=== PATIENT | female | born 2000 | race Caucasian/White ===

== ENCOUNTER 2019-02-15 07:16 | Emergency (ER) | payer BC ==
[~2019-02-15] VITALS: Ht 157.5 cm; Wt 37.0 kg
[2019-02-15 07:21] VITALS: BP 121/90
[2019-02-15 08:56] LABS: BASOPHILS % (AUTO) 0.4 % (0-1); EOSINOPHILS # (AUTO) 0.1 X10'3 (0-0.9); HEMATOCRIT 38.8 % (35.0-45.0); HEMOGLOBIN 13.5 g/dl (12.0-16.0); LYMPHOCYTES # (AUTO) 2.1 X10'3 (1.1-4.8); LYMPHOCYTES % (AUTO) 28.6 % (21-51); MEAN CORPUSCULAR HEMOGLOBIN 32.3 PG (27.0-31.0); MEAN CORPUSCULAR HGB CONC 34.7 g/dL (33.0-36.5); MEAN CORPUSCULAR VOLUME 92.9 FL (78-98); MEAN PLATELET VOLUME 7.9 FL (7.4-10.4); MONOCYTES # (AUTO) 0.8 X10'3 (0-0.9); MONOCYTES % (AUTO) 10.7 % (2-12); NEUTROPHILS # (AUTO) 4.4 X10'3 (1.8-7.7); NEUTROPHILS % (AUTO) 59.3 % (42-75); PLATELET COUNT 261 X10'3 (140-440); RED BLOOD COUNT 4.18 X10'6 (4.20-5.60); RED CELL DISTRIBUTION WIDTH 12.2 % (11.5-14.5); WHITE BLOOD COUNT 7.4 X10'3 (4.5-11.0)
[2019-02-15 09:18] LABS: ALANINE AMINOTRANSFERASE 26 U/L (12-78); ALBUMIN 3.8 G/DL (3.4-5.0); ALKALINE PHOSPHATASE 33 IU/L (20-180); ANION GAP 5 (8-16); ASPARTATE AMINO TRANSFERASE 31 U/L (10-37); BILIRUBIN,TOTAL 1.2 MG/DL (0.1-1.0); BLOOD UREA NITROGEN 11 MG/DL (7-18); BUN/CREATININE RATIO 15.1 (6.6-38.0); CALCIUM 9.3 MG/DL (8.5-10.1); CHLORIDE 100 MMOL/L (99-107); CREATININE 0.73 MG/DL (0.40-0.90); GLUCOSE 75 MG/DL (70-104); POTASSIUM 3.5 MMOL/L (3.5-5.1); SODIUM 136 MMOL/L (135-145); TOTAL CARBON DIOXIDE 30.8 MMOL/L (24-32); TOTAL PROTEIN 7.7 G/DL (6.4-8.2); eGFR > 90 ML/MIN
== END 2019-02-15 09:59 | disposition home or self-care (01) ==
LOC: ER 07:17
DX: E87.6 Hypokalemia (principal); B34.9 Viral infection, unspecified
CPT/HCPCS: 36415; 80053; 85025; 99283

== ENCOUNTER 2021-05-24 20:47 | Emergency (ER) | payer BC ==
[~2021-05-24] VITALS: Ht 157.5 cm; Wt 41.8 kg
[2021-05-24] MEDS ORDERED: normal saline 1000ML IV soln IVB ONE (21:00)
[2021-05-24] MEDS ORDERED: ARIP5TAB60 PO (21:04)
[2021-05-24] MEDS ORDERED: BUSP15TA3 PO (21:04)
[2021-05-24] MEDS ORDERED: GABA-530 PO (21:04)
[2021-05-24] MEDS ORDERED: haloperidol lactate 5mg/ml inj IM ONE (21:40)
[2021-05-24] MEDS ORDERED: diphenhydrAMINE 50 mg/ml inj IM ONE (21:40)
[2021-05-24 22:09] LABS: BASOPHILS % (AUTO) 0.6 % (0-1); EOSINOPHILS % (AUTO) 0.7 % (0-6); HEMATOCRIT 41.9 % (35.0-45.0); HEMOGLOBIN 14.2 g/dl (12.0-16.0); LYMPHOCYTES # (AUTO) 1.3 X10'3 (1.1-4.8); LYMPHOCYTES % (AUTO) 18.1 % (21-51); MEAN CORPUSCULAR HEMOGLOBIN 30.7 PG (27.0-31.0); MEAN CORPUSCULAR HGB CONC 33.9 g/dL (33.0-36.5); MEAN CORPUSCULAR VOLUME 90.4 FL (78-98); MEAN PLATELET VOLUME 8.3 FL (7.4-10.4); MONOCYTES # (AUTO) 0.5 X10'3 (0-0.9); MONOCYTES % (AUTO) 6.6 % (2-12); NEUTROPHILS # (AUTO) 5.4 X10'3 (1.8-7.7); PLATELET COUNT 324 X10'3 (140-440); RED BLOOD COUNT 4.63 X10'6 (4.20-5.60); RED CELL DISTRIBUTION WIDTH 12.4 % (11.5-14.5); WHITE BLOOD COUNT 7.3 X10'3 (4.5-11.0)
[2021-05-24 22:26] LABS: ALANINE AMINOTRANSFERASE 23 U/L (12-78); ALBUMIN 3.5 G/DL (3.4-5.0); ALBUMIN/GLOBULIN RATIO 0.8 (1.1-1.5); ALKALINE PHOSPHATASE 35 IU/L (46-116); ANION GAP 16 (8-16); ASPARTATE AMINO TRANSFERASE 29 U/L (10-37); BILIRUBIN,TOTAL 0.3 MG/DL (0.1-1.0); BLOOD UREA NITROGEN 9 MG/DL (7-18); BUN/CREATININE RATIO 9.3 (6.6-38.0); CALCIUM 8.5 MG/DL (8.5-10.1); CHLORIDE 103 MMOL/L (99-107); CREATININE 0.97 MG/DL (0.40-0.90); GLUCOSE 88 MG/DL (70-104); SODIUM 143 MMOL/L (135-145); TOTAL CARBON DIOXIDE 23.6 MMOL/L (24-32); TOTAL PROTEIN 7.8 G/DL (6.4-8.2); eGFR 72 ML/MIN
[2021-05-24] MEDS ORDERED: nicotine 14mg patch - 24hr TD ONE (22:30)
[2021-05-24] MEDS ORDERED: METO5TAB98 PO (23:10)
[2021-05-24] MEDS ORDERED: POTA-82 PO (23:10)
[2021-05-24 23:19] LABS: URINE HCG NEGATIVE (NEG)
[2021-05-24 23:32] LABS: URINE AMPHETAMINE SCREEN NEGATIVE (Neg); URINE BARBITUATE SCREEN NEGATIVE (Neg); URINE BENZODIAZEPINES SCREEN NEGATIVE (Neg); URINE CANNABINOID SCREEN POSITIVE (Neg); URINE COCAINE SCREEN NEGATIVE (Neg); URINE METHADONE SCREEN NEGATIVE (Neg); URINE OPIATE SCREEN NEGATIVE (Neg); URINE PHENCYCLIDINE SCREEN NEGATIVE (Neg)
--- NOTE | 2021-05-25 01:00 | NUR ---
Patient [facility] main [facility]. She was asleep on a gurney, accompanied by brittaney Styles. Patient transferred to bed and put in green scrubs. She went right to sleep.
--- NOTE | 2021-05-25 02:47 | NUR ---
Patient continues to sleep. No distress noted.
--- NOTE | 2021-05-25 04:14 | NUR ---
Patient sleeping on her right side. No signs of distress.
--- NOTE | 2021-05-25 05:34 | NUR ---
Patient asleep on her left side. Breathing unlabored. No s/sx of distress.
--- NOTE | 2021-05-25 05:41 | NUR ---
Packet faxed to [facility].
--- NOTE | 2021-05-25 06:30 | NUR ---
Assumed care of patient. Pt was sitting on her bed crying, then up to bathroom.
--- NOTE | 2021-05-25 07:15 | NUR ---
REASSESED BP 108/58
[2021-05-25] MEDS ORDERED: ondansetron 4mg rapidly disintigrating tab PO ONE (07:25)
--- NOTE | 2021-05-25 07:30 | NUR ---
Pt up again to the bathroom with N/V. Received order for Zofran 4mg. Pt given crackers and juice. Pt's ETOH level was 0.280. Pt states she doesn't remember "anything about last night." "I thought it was still last night." Pt admits to having an ETOH history "I usually get into trouble when I drink." Pt states "I was sober for awhile." Will continue to monitor N/V.
[2021-05-25] MEDS ORDERED: gabapentin 100mg capsule PO SCH (08:00)
[2021-05-25] MEDS ORDERED: busPIRone 15mg tablet PO SCH (08:00)
[2021-05-25] MEDS ORDERED: aripiprazole 5mg tablet PO SCH (08:00)
[2021-05-25] MEDS ORDERED: potassium Cl 20 mEq SR tablet PO SCH (08:00)
--- NOTE | 2021-05-25 08:44 | NUR ---
One on one with patient, pt A&Ox4. Pt awake eating her breakfast, states Zofran was effective. Pt was compliant with her AM medication. Pt denies suicidal thoughts, A/VH. Pt states she has thought about suicide, but has never acted upon it. When asked if she drinks to harm herself, she states "it's sometimes like that." Pt reports history of cutting, but "not for a long time."
--- NOTE | 2021-05-25 10:10 | NUR ---
Patient is currently being evaluated by [facility].
--- NOTE | 2021-05-25 11:02 | NUR ---
Pt will not be placed on hold per [facility] clinician. Pt is able to safety plan as her mother states she is not allowed to come home. Wood Heel Attacher spoke with Shama, Substance Use Navigator, who gave her resources to assist with ETOH dependence.
--- NOTE | 2021-05-25 11:05 | NUR ---
Met with patient in regards to alcohol use and to see if patient wanted resources for treatment options. Patient does not want to go to a inpatient rehab. I gave patient a list of outpatient resources and talked to her about medication management. I gave her my card to contact me if needed.
--- NOTE | 2021-05-25 12:44 | NUR ---
Pt lying on her bed, no distress noted. Pt ate 100% of her lunch. Pt's mom dropped off personal belongings for patient, but declined to see her.
--- NOTE | 2021-05-25 13:59 | NUR ---
Pt has phone, trying to make arrangements to stay with a friend.
--- NOTE | 2021-05-25 15:14 | NUR ---
Pt sitting on bed, calm/cooperative.
--- NOTE | 2021-05-25 16:23 | NUR ---
DISCHARGE NOTE: Patient was discharged from unit at 1618. Pt left with all personal belongings to include the bags her mother dropped off. Pt was A&OX4. Pt presents slightly anxious as she is being discharged to the [facility]. [facility] at [facility] is aware of pt's discharge and will meet her when taxi drops her off.
[2021-05-25 16:25] VITALS: BP 108/58
== END 2021-05-25 16:18 ==
LOC: ER 20:48
DX: F10.129 Alcohol abuse with intoxication, unspecified (principal); Z20.822 Contact with and (suspected) exposure to COVID-19; R45.1 Restlessness and agitation; F31.9 Bipolar disorder, unspecified; Z88.8 Allergy status to other drugs, medicaments and biological substances; Z79.899 Other long term (current) drug therapy; Y90.0 Blood alcohol level of less than 20 mg/100 ml
CPT/HCPCS: 36415; 80053; 80305; 80320; 81025; 84443; 85025; 87635; 96372; 99285; C9803; J1200; J1630; J7030; J8597

== ENCOUNTER 2022-05-17 11:55 | Inpatient (IN) | payer BC, MEDICAID ==
[~2022-05-17] VITALS: Ht 157.5 cm; Wt 45.9 kg
[~2022-05-17 11:55] MED LIST: ARIP5TAB60 PO; BUSP15TA3 PO; GABA-530 PO; METO5TAB98 PO; POTA-82 PO
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
[2022-05-17] MEDS ORDERED: LORazepam 1 MG tablet PO ONE (14:10)
[2022-05-17] MEDS ORDERED: acetaminophen 325mg tablet PO PRN (14:20)
[2022-05-17] MEDS ORDERED: magnesium hydroxide 30ml (MOM) UD suspension PO PRN (14:20)
[2022-05-17] MEDS ORDERED: loperamide 2mg capsule PO PRN (14:20)
[2022-05-17] MEDS ORDERED: mag hydrox/Alum hydrox/simeth 30ml oral suspension PO PRN (14:20)
[2022-05-17] MEDS ORDERED: nicotine 21mg patch - 24 hr TD ONE (14:30)
[2022-05-17] MEDS: LORazepam 1 MG tablet PO PRN ×2 (14:54→23:52)
[2022-05-17] MEDS: NICOTINE POLACRILEX 2 MG LOZENGE BC PRN ×2 (14:54→23:55)
[2022-05-17] MEDS ORDERED: GABA-530 PO (15:05)
[2022-05-17] MEDS ORDERED: SULF1TAB45 PO (15:05)
[2022-05-17] MEDS ORDERED: ARIP10TA57 PO (15:05)
[2022-05-17] MEDS ORDERED: SERT-433 PO (15:05)
[2022-05-17] MEDS ORDERED: METO10TA3 PO (15:05)
[2022-05-17] MEDS ORDERED: SERT25TA PO (16:13)
[2022-05-17] MEDS ORDERED: ARIP5TAB17 PO (16:13)
[2022-05-17] MEDS: acetaminophen 325mg tablet PO PRN (16:45)
[2022-05-17] MEDS: metoclopramide 10mg tablet PO SCH (17:34)
[2022-05-17] MEDS: lactose-reduced food (Ensure Enlive) - 237ml bottle PO SCH (18:00)
[2022-05-17 20:00] VITALS: BP 131/74
[2022-05-17] MEDS: aripiprazole 5mg tablet PO SCH (20:53)
[2022-05-17] MEDS: sulfamethoxazole/trimethoprim DS (800/160mg) tablet PO SCH (20:53)
[2022-05-17] MEDS: sertraline 25mg tablet PO SCH (20:53)
[2022-05-17] MEDS: gabapentin 300mg capsule PO SCH (20:53)
[2022-05-17] MEDS: lactobacillus rhamnosus 10,000 MMU CELLS/CAPSULE PO SCH (20:53)
[2022-05-17] MEDS ORDERED: metoclopramide 10mg tablet PO SCH (21:00)
[2022-05-17 21:28] VITALS: BP 131/74
[2022-05-18] MEDS: LORazepam 1 MG tablet PO PRN ×3 (00:39→15:10)
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
--- NOTE | 2022-05-18 05:49 | NUR ---
Pt.'s CMP from 05/15 was 3.3. Provider contacted and CMP ordered for this AM.
[2022-05-18] MEDS: nicotine 21mg patch - 24 hr TD SCH (07:14)
[2022-05-18 08:00] VITALS: BP 136/79
[2022-05-18] MEDS: sertraline 25mg tablet PO SCH ×2 (08:15→20:47)
[2022-05-18] MEDS: sulfamethoxazole/trimethoprim DS (800/160mg) tablet PO SCH ×2 (08:15→20:47)
[2022-05-18] MEDS: gabapentin 300mg capsule PO SCH ×3 (08:15→20:47)
[2022-05-18] MEDS: lactobacillus rhamnosus 10,000 MMU CELLS/CAPSULE PO SCH ×2 (08:16→20:47)
[2022-05-18] MEDS: aripiprazole 5mg tablet PO SCH ×2 (08:16→20:47)
[2022-05-18] MEDS: metoclopramide 10mg tablet PO SCH ×3 (08:16→17:10)
[2022-05-18] MEDS: lactose-reduced food (Ensure Enlive) - 237ml bottle PO SCH ×2 (08:18→13:08)
[2022-05-18] MEDS: acetaminophen 325mg tablet PO PRN (08:21)
[2022-05-18] MEDS: NICOTINE POLACRILEX 2 MG LOZENGE BC PRN ×3 (09:38→15:10)
[2022-05-18 09:54] LABS: ALANINE AMINOTRANSFERASE 24 U/L (12-78); ALBUMIN 3.7 G/DL (3.4-5.0); ALBUMIN/GLOBULIN RATIO 0.9 (1.1-1.5); ALKALINE PHOSPHATASE 46 IU/L (46-116); ANION GAP 13 (8-16); ASPARTATE AMINO TRANSFERASE 34 U/L (10-37); BILIRUBIN,TOTAL 0.5 MG/DL (0.1-1.0); BLOOD UREA NITROGEN 17 MG/DL (7-18); BUN/CREATININE RATIO 16.3 (10.0-20.0); CALCIUM 9.2 MG/DL (8.5-10.1); CHLORIDE 103 MMOL/L (99-107); CHOL/HDL RATIO 2.3 (0.00-4.99); CHOLESTEROL 158 MG/DL (0-200); CREATININE 1.04 MG/DL (0.40-0.90); GLUCOSE 130 MG/DL (70-104); HDL CHOLESTEROL 68 MG/DL (35-60); LDL CHOLESTEROL 73 MG/DL (50-100); POTASSIUM 3.6 MMOL/L (3.5-5.1); SODIUM 138 MMOL/L (135-145); TOTAL CARBON DIOXIDE 22.1 MMOL/L (24-32); TOTAL PROTEIN 7.9 G/DL (6.4-8.2); TRIGLYCERIDES 69 MG/DL (20-135); eGFR 66 ML/MIN
[2022-05-18 10:06] LABS: HEMOGLOBIN A1C 4.8 % (4.5-6.2)
--- NOTE | 2022-05-18 14:49 | NUR ---
Nutrition Consult "only eats solids in PM, wants Ensures and clear liquids during day": Pt w/ regular diet and Ensure Enlive TIDWM ordered PO 100% first ONS this AM w/ 0-25% vs refusing initial meals per EMR. MUSA d/w RN who reports pt hx eating disorder pt very particular reports has gastroparesis only takes in opaque liquids during day but does drink normal Ensures. Despite this pt refused Ensure WL per RN claiming to save for later. Pt BMI 18.5 though up from last June 05 w/ normal strength and no edema/wounds per EMR. Pt is receiving reglan TIDWM per EMR. MUSA d/w RN recommends transitioning to Ensure Clear TIDWM if MD agreeable given pt PO trends and preference in addition to small stature still would provide significant source of kcal/protein. MUSA d/w RN will send clear broths as main entree BIDBL though normal regular diet sides and suppers will be sent-dietary notified. Per RN, pt dislikes chocolate Ensures Enlives only wants vanilla until Ensure Clears to start-dietary notified. Will monitor for PO tolerance and further nutrition intervention needs. Addendum: 05/18/22 at [address] Amended: Links added.
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
--- NOTE | 2022-05-18 17:13 | NUR ---
CORRECTION: It was pt's grandma who visited today, not her mother.
[2022-05-18] MEDS: NUT.TX.IMPAIRED DIGEST FXN (Ensure Clear) 237 ML PO SCH (18:00)
[2022-05-18 20:23] VITALS: BP 120/70
[2022-05-18] MEDS ORDERED: metoclopramide 10mg tablet PO ONE (21:00)
[2022-05-19] MEDS: LORazepam 1 MG tablet PO PRN ×2 (01:28→07:43)
--- NOTE | 2022-05-19 05:49 | NUR ---
NURSING PROGRESS NOTE Problem: Pt. admitted from [facility] on 5150 for DTS. 5150 states "You were making suicidal statements & self-harming by hitting yourself". Interventions: 1:1 assessment, establishment of rapport, therapeutic conversation, active listening, ensured contract for safety, medication administration/education/monitoring, anxiety management, behavior monitoring and intervention as needed; provided reality orientation, limit setting, verbal de-escalation, distraction, redirection, positive reinforcement, and Q15 minute safety checks. Response: Pt sleeping at start of shift. Pt woke around 2029 and asked about her dinner. Pt then started getting upset that she didnt get her Reglan before eating and insisted we bring her that medication. I have gastroparesis and have a hard time digesting wheat products. Several food items were offered to her but she claimed that she couldnt eat them. I need food that I can eat. Monik tried hard to gain weight and now Im going to lose it all here. Pt. still has UTI, burning upon urination. Pt refused to remove her nicotine patch. I already have night terrors so I want to keep it on, I already had a dream about an ant bashing my head in. Ativan was given for anxiety and help pt. sleep. Pt drank her 3 ensures tonight, then told automobile and property underwriter she threw up and the Ativan too. No emesis observed, pt. had already flushed the toilet. Maalox 30 ml given for indigestion. Pt asked for her Valerian root she brought. Power Shear Operator told pt. it wouldnt be until tomorrow that we could get it ordered. Pt. then went to her room to cry. Monitor for safety q15 minutes. Plan: Pt. requires crisis interruption with medication management and monitoring in a safe and therapeutic environment until stable.
[2022-05-19] MEDS: metoclopramide 10mg tablet PO SCH ×3 (07:10→16:50)
[2022-05-19] MEDS: gabapentin 400mg capsule PO SCH ×3 (07:43→20:17)
[2022-05-19] MEDS: sertraline 25mg tablet PO SCH ×2 (07:43→20:17)
[2022-05-19] MEDS: sulfamethoxazole/trimethoprim DS (800/160mg) tablet PO SCH ×2 (07:43→20:17)
[2022-05-19] MEDS: lactobacillus rhamnosus 10,000 MMU CELLS/CAPSULE PO SCH ×2 (07:43→20:16)
[2022-05-19] MEDS: nicotine 21mg patch - 24 hr TD SCH (07:52)
[2022-05-19 08:00] VITALS: BP 125/85
[2022-05-19] MEDS ORDERED: gabapentin 300mg capsule PO SCH (08:00)
[2022-05-19] MEDS: NUT.TX.IMPAIRED DIGEST FXN (Ensure Clear) 237 ML PO SCH ×3 (08:12→18:03)
[2022-05-19] MEDS: asenapine 5mg TAB.SUBL SL SCH (08:22)
[2022-05-19] MEDS: NICOTINE POLACRILEX 2 MG LOZENGE BC PRN ×3 (10:00→18:07)
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
--- NOTE | 2022-05-19 14:32 | NUR ---
NURSING PROGRESS NOTE Problem : Pt. admitted from [facility] on 5150 for DTS. 5150 states "You were making suicidal statements & self harming by hitting yourself". Interventions: 1:1 assessment, establishment of rapport, therapeutic conversation, active listening, ensured contract for safety, medication administration/education/monitoring, anxiety management, behavior monitoring and intervention as needed; maintained clear boundaries, anxiety management, provided distraction, redirection, positive reinforcement, and Q15 minute safety checks. Response : Pt was up before breakfast. Pt expressed concern over her diet. Pt became tearful. Reassured pt that her Ensure with meals had been changed to Ensure Clear and she should get this for breakfast. Administered Ativan 1 mg PRN increased anxiety at 0743 with good effect. Pt did receive Ensure Clear for breakfast and drank 100% of it. She also drank all of her broth. Pt stated that it was "awesome and I really enjoyed the broth too." Dr Alvarez changed her medication orders today. Her Abilify time was changed from morning to HS, her gabapentin was increased to 400 mg TID. She has a new order for Saphris 5 mg SL daily, she received her first dose this morning. Pt did c/o of some episodes of diarrhea before lunch and requested a PRN. PRN imodium 2 mg was given at 1300 with good effect. Pt again drank 100% of her Ensure clear and her broth at lunch, she also ate approximately 1/2 of her chicken breast. Pt requested PRN nicotine lozenges at 1000 & 1152. Pt c/o of some generalized and flank pain in the morning but refused PRN Tylenol. Dr Alvarez notified that pt was c/o flank pain and refusing Tylenol. Pt continues on PO ABX Septra for UTI. Pt is excited about her medication changes especially the Saphris. Plan is for pt to discharge home tomorrow. Pt denied SI/HI/AH/VH. Plan : Pt was in need of crisis interruption with medication adjustment and management in a safe and therapeutic environment. Pt's medications have been adjusted and the plan is for her to discharge home tomorrow.
[2022-05-19] MEDS ORDERED: ondansetron 4mg rapidly disintigrating tab PO PRN (18:55)
[2022-05-19 19:00] VITALS: BP 116/82
[2022-05-19] MEDS ORDERED: aripiprazole 5mg tablet PO SCH (21:00)
[2022-05-20] MEDS: LORazepam 1 MG tablet PO PRN (02:20)
[2022-05-20] MEDS: NICOTINE POLACRILEX 2 MG LOZENGE BC PRN ×2 (02:37→06:39)
--- NOTE | 2022-05-20 05:04 | NUR ---
NURSING PROGRESS NOTE Problem : Pt. admitted from [facility] on 5150 for DTS. 5150 states "You were making suicidal statements & self harming by hitting yourself". Interventions: 1:1 assessment, establishment of rapport, therapeutic conversation, active listening, ensured contract for safety, medication administration/education/monitoring, anxiety management, behavior monitoring and intervention as needed; maintained clear boundaries, anxiety management, provided distraction, redirection, positive reinforcement, and Q15 minute safety checks. Response :Patient came to nurse complaining of nausea and asked for Zofran. P.A Kory ordered Zofran 4mg. Patient took medication and went back to her room. Patient stayed in her room until waking up and asking for night medication. Patient took medication and went back to bed. Patient woke up a couple hours later stating she had a nightmare and asked for something to let her calm down. Patient was given prn Ativan. Patient retuned to sleep. Patient got up again complain of nightmares. Patient had to be convinced to take off nicotine patch. Patient got up right after and started complain she couldn't sleep without nicotine. Patient was given a nicotine patch. Plan : Pt was in need of crisis interruption with medication adjustment and management in a safe and therapeutic environment. Pt's medications have been adjusted and the plan is for her to discharge home tomorrow.
[2022-05-20] MEDS: asenapine 5mg TAB.SUBL SL SCH (08:00)
[2022-05-20] MEDS: sulfamethoxazole/trimethoprim DS (800/160mg) tablet PO SCH (08:04)
[2022-05-20] MEDS: lactobacillus rhamnosus 10,000 MMU CELLS/CAPSULE PO SCH (08:04)
[2022-05-20] MEDS: sertraline 25mg tablet PO SCH (08:04)
[2022-05-20] MEDS: metoclopramide 10mg tablet PO SCH (08:04)
[2022-05-20] MEDS: NUT.TX.IMPAIRED DIGEST FXN (Ensure Clear) 237 ML PO SCH (08:05)
[2022-05-20] MEDS: nicotine 21mg patch - 24 hr TD SCH (08:05)
[2022-05-20] MEDS: gabapentin 400mg capsule PO SCH (08:05)
[2022-05-20] MEDS ORDERED: GABA-534 PO (08:09)
[2022-05-20] MEDS ORDERED: SERT-432 PO (08:09)
[2022-05-20] MEDS ORDERED: ASEN5TAB10 SL (08:09)
[2022-05-20] MEDS ORDERED: NICO-687 TD (08:09)
[2022-05-20] MEDS ORDERED: SULF1TAB45 PO (08:09)
--- NOTE | 2022-05-20 10:05 | NUR ---
DISCHARGE NOTE: Patient awakens and reports that she should be discharging this morning. Patient is anxious and requests that she be discharged expeditiously. All patient's medications from the pharmacy and her personal belongings were given to her. Patient was escorted down to her grandmother's vehicle. Patient is not suicidal and is discharged in stable condition.
== END 2022-05-20 10:05 | disposition home or self-care (01) | DRG 883 ==
LOC: ADULT MH 11:55
PROVIDERS: ADMIT Psychiatry & Neurology Psychiatry; ATTEND Psychiatry & Neurology Psychiatry
DX: F60.9 Personality disorder, unspecified (principal); F50.9 Eating disorder, unspecified; R45.851 Suicidal ideations; Z68.1 Body mass index [BMI] 19.9 or less, adult; F43.12 Post-traumatic stress disorder, chronic; F41.9 Anxiety disorder, unspecified; F10.20 Alcohol dependence, uncomplicated; F17.210 Nicotine dependence, cigarettes, uncomplicated; Z86.59 Personal history of other mental and behavioral disorders; Z79.899 Other long term (current) drug therapy
CPT/HCPCS: 36415; 80053; 80061; 83036; 87081